=== PATIENT | female | born 1990 | race Caucasian/White ===

== ENCOUNTER 2023-08-04 07:15 | Observation (INO) | payer OTHER, SELFPAY ==
[2023-08-04 07:28] VITALS: BP 128/83; BMI 25.1
== END 2023-08-04 08:12 | disposition home or self-care (01) ==
LOC: LDRP 07:15
PROVIDERS: ADMITTING PHYSICIAN Obstetrics & Gynecology
DX: O47.1 False labor at or after 37 completed weeks of gestation (principal); Z3A.38 38 weeks gestation of pregnancy
CPT/HCPCS: 59025; G0378

== ENCOUNTER 2023-08-19 00:26 | Inpatient (IN) | payer OTHER, SELFPAY ==
[2023-08-19 00:42] VITALS: BP 152/88; BMI 25.1
[2023-08-19 01:31] LABS: % Basophils 0.4 % (0-2); % Eosinophils 0.7 % (0-6); % Immature Granulocytes 2.1 % (0-0.5); % Lymphocytes 15.9 % (20.5-51.1); % Neutrophils 75.9 % (42.2-75.2); Absolute Basophils 0.1 10^3/uL (0-0.2); Absolute Eosinophils 0.1 10^3/uL (0-0.7); Absolute Immature Granulocytes 0.3 10^3/uL (0-0.05); Absolute Lymphocytes 2.6 10^3/uL (1.2-3.4); Absolute Monocytes 0.8 10^3/uL (0.1-0.6); Absolute Neutrophils 12.5 10^3/uL (1.4-6.5); Hematocrit 35.9 % (37.0-47.0); Hemoglobin 12.2 g/dL (12.0-16.0); Mean Corpuscular Hgb 31.6 pg (27.0-31.0); Mean Platelet Volume 9.6 fL (7.4-10.4); Nucleated Red Blood Cells % 0 %; Platelet Count 184 10^3/uL (130-400); Red Blood Cell Count 3.86 10^6/uL (4.20-5.40); White Blood Cell Count 16.4 10^3/uL (4.8-10.8)
[2023-08-19] MEDS: SUBLIMAZE 100 MCG EPIDURAL (01:58)
[2023-08-19] MEDS: LR 1000 IV (01:58)
[2023-08-19] MEDS: FENTANYL/BUPIVACAINE 100 EPIDURAL (01:58)
[2023-08-19] MEDS: PITOCIN 30 UNITS/NSS 500 ML IV (03:45)
[2023-08-19] MEDS: PRENATAL PLUS 1 TABLET PO (20:15)
[2023-08-19] MEDS: SENOKOT-S 1 TABLET PO (20:15)
[2023-08-20 04:21] LABS: Hematocrit 32.4 % (37.0-47.0); Hemoglobin 11.6 g/dL (12.0-16.0); Mean Corp Hgb Conc. 35.8 g/dL (33.0-37.0); Mean Corpuscular Hgb 32.4 pg (27.0-31.0); Mean Corpuscular Volume 90.5 fL (81.0-99.0); Platelet Count 161 10^3/uL (130-400); Red Blood Cell Count 3.58 10^6/uL (4.20-5.40); Red Cell Dist. Width 13.2 % (11.5-14.5); White Blood Cell Count 14.4 10^3/uL (4.8-10.8)
[2023-08-20 04:45] LABS: ALT (SGPT) 20 U/L (0-35); AST (SGOT) 51 U/L (14-36); Albumin 3.3 g/dl (3.5-5.0); Alkaline Phosphatase 134 U/L (38-126); Blood Urea Nitrogen 11 mg/dl (7-17); Carbon Dioxide 27 mmol/L (22-30); Chloride 102 mmol/L (98-107); Estimated Creatinine Clearance 121 ml/min; Glucose 72 mg/dl (70-99); Potassium 4.2 mmol/L (3.5-5.1); Sodium 135 mmol/L (135-145); Total Bilirubin 0.3 mg/dl (0.2-1.3); Total Protein 5.9 g/dl (6.3-8.2); eGFR > 60.00
[2023-08-20] MEDS: MOTRIN 600 MG PO ×2 (09:02→15:00)
[2023-08-20] MEDS: HYPERRHO S-D 1500 UNIT IM (09:54)
[2023-08-20] MEDS: PRENATAL PLUS 1 TABLET PO (23:00)
[2023-08-21 05:06] LABS: Hematocrit 35.2 % (37.0-47.0); Hemoglobin 12.4 g/dL (12.0-16.0); Mean Corp Hgb Conc. 35.2 g/dL (33.0-37.0); Mean Platelet Volume 9.1 fL (7.4-10.4); Platelet Count 177 10^3/uL (130-400); Red Blood Cell Count 3.87 10^6/uL (4.20-5.40); Red Cell Dist. Width 13.4 % (11.5-14.5); White Blood Cell Count 13.3 10^3/uL (4.8-10.8)
[2023-08-21 05:33] LABS: ALT (SGPT) 23 U/L (0-35); AST (SGOT) 52 U/L (14-36); Albumin 3.6 g/dl (3.5-5.0); Alkaline Phosphatase 138 U/L (38-126); Blood Urea Nitrogen 12 mg/dl (7-17); Calcium 9.7 mg/dl (8.4-10.2); Carbon Dioxide 26 mmol/L (22-30); Chloride 104 mmol/L (98-107); Estimated Creatinine Clearance 121 ml/min; Glucose 70 mg/dl (70-99); Potassium 4.1 mmol/L (3.5-5.1); Sodium 135 mmol/L (135-145); Total Bilirubin 0.2 mg/dl (0.2-1.3); Total Protein 6.3 g/dl (6.3-8.2); eGFR > 60.00
[2023-08-21] MEDS: PRENATAL PLUS 1 TABLET PO (09:06)
[2023-08-21] MEDS: MOTRIN 600 MG PO (09:06)
[2023-08-21] MEDS: SENOKOT-S 1 TABLET PO (09:07)
[2023-08-21 11:55] LABS: Syphilis/T. pallidum Ab Reflex Negative (Negative)
== END 2023-08-21 11:29 | disposition home or self-care (01) | DRG 807 ==
LOC: LDRP 00:26
PROVIDERS: Obstetrics & Gynecology; ADMITTING PHYSICIAN Obstetrics & Gynecology
PROC: 0KQM0ZZ Repair Perineum Muscle, Open Approach (ICD-10-PCS; 2023-08-19)
PROC: 10E0XZZ Delivery of Products of Conception, External Approach (ICD-10-PCS; 2023-08-19)
PROC: 3E0234Z Introduction of Serum, Toxoid and Vaccine into Muscle, Percutaneous Approach (ICD-10-PCS; 2023-08-20)
DX: O42.02 Full-term premature rupture of membranes, onset of labor within 24 hours of rupture (principal); Z37.0 Single live birth; Z3A.40 40 weeks gestation of pregnancy; O70.1 Second degree perineal laceration during delivery; O48.0 Post-term pregnancy; O99.344 Other mental disorders complicating childbirth; F41.9 Anxiety disorder, unspecified; F32.A Depression, unspecified; O62.3 Precipitate labor; O13.4 Gestational [pregnancy-induced] hypertension without significant proteinuria, complicating childbirth; O43.123 Velamentous insertion of umbilical cord, third trimester
CPT/HCPCS: 88307; 80053; 85025; 85027; 85461; 86780; 86850; 86900; 86901; J2790